=== PATIENT | male | born 1955 | race Caucasian/White ===

== ENCOUNTER → 2024-03-01 | Outpatient (CLI) | payer MEDICARE ==
--- NOTE | 2024-03-01 09:36 | HMCIMG ---
US AORTA LIMITED REASON: aaa. COMPARISON: None TECHNIQUE: Abdominal aorta ultrasound study was performed. FINDINGS: Proximal portion of the abdominal aorta measures 2 x 2.3 cm, midportion measures 2.1 x 1.9 cm and distal portion measures 1.8 x 1.7 cm. Right common iliac artery measures 8 x 10 mm. Left common iliac artery measures 7 x 8 mm. No evidence of abdominal aortic aneurysm is seen IMPRESSION: No evidence of abdominal aortic aneurysm is seen.
--- NOTE | 2024-03-01 19:58 | HMCSR ---
APPROVED REPORT EXAM: Two-dimensional and M-mode echocardiogram with Doppler and color Doppler. INDICATION ICD: Cardiac murmur, unspecified R01.1 2D Dimensions RVDd3.9 cmLVEF(%)68.5 (>50%)LVED Vol(simp.)124.0 mL IVSd0.8 (0.7-1.1cm)FS(%)39 %LVES Vol(simp.)51.0 mL LVDd5.2 (3.8-5.6cm)LA (2D)4.1 (1.6-4.0cm)LVEF(%, simp.)59 % PWd1.0 (0.7-1.1cm)Ao Root(2D)3.2 (2.0-3.7cm)LA ESV INDEX (4CH)24.60 mL/m2 IVSs1.3 cmLVOT diam2.2 (1.8-2.4cm)LA ESV INDEX (2CH)36.60 mL/m2 LVDs3.2 (2.5-4.0cm) PWs1.4 cm M-Mode Dimensions EPSS0.3 cm LA (MM)4.0 (1.6-4.0cm) Ao Root(MM)3.0 (2.0-3.7cm) Aortic Valve AoV VTI0.3 mAo Mean GR3.0 mmHgLVOT VTI0.21 m JACEY (VMAX)3.1 cm2AVA (VTI) 3.1 cm2 Mitral Valve MV E Vmax50.9 cm/sDECEL Cqvc431 ms MV A Vmax71.8 cm/sP 1/2 T73 ms E/A ratio0.7MVA (PHT)3.0 cm2 TDI E/E' Medial9.3E/E' Lateral5.5 Medial E' Peak V5.50 cm/sLateral E' Peak V9.20 cm/s Left Ventricle The left ventricle is normal size. There is normal LV segmental wall motion. There is normal left dank tricular wall thickness. LVEF is 55-60%. The left ventricular diastolic function is normal. Right Ventricle The right ventricle is normal size. The right ventricular systolic function is normal. Atria The left atrium is mildly dilated. The right atrium size is normal. Aortic Valve The aortic valve is normal in structure. No aortic regurgitation is present. There is no aortic valvu lar stenosis. Mitral Valve The mitral valve is normal in structure. There is no mitral valve regurgitation noted. There is no mi tral valve stenosis. Tricuspid Valve The tricuspid valve is normal in structure. There is no tricuspid valve regurgitation noted. Pulmonic Valve Pulmonic valve is not well visualized. There is no pulmonic valvular regurgitation. Great Vessels The aortic root is normal in size. The IVC is normal in size and collapses >50% with inspiration. Pericardium There is no pericardial effusion. Other Information Quality : Average Conclusion The left ventricle is normal size. LVEF is 55-60% with normal LV segmental wall motion. The left ventricular diastolic function is normal. The right ventricular systolic function is normal. The left atrium is mildly dilated. No hemodynamically significant valvular abnormalities. There is no pericardial effusion.
== END | disposition home or self-care (01) ==
LOC: RAH 07:48
PROVIDERS: ATTEND Internal Medicine
DX: Z13.6 Encounter for screening for cardiovascular disorders (principal); R01.1 Cardiac murmur, unspecified; I51.7 Cardiomegaly; I71.40 Abdominal aortic aneurysm, without rupture, unspecified
CPT/HCPCS: 76775; 93306